=== PATIENT | male | born 1990 | race Caucasian/White ===

== ENCOUNTER 2017-12-06 05:01 | Emergency (ER) | payer OTHER ==
[2017-12-06] MEDS ORDERED: NS(*) 0.9% 1000 ML BAG 1,000 ML IV ONE (05:13)
[2017-12-06] MEDS ORDERED: PANTOPRAZOLE SOD 40 MG IV VIAL IVP ONE (05:15)
[2017-12-06] MEDS ORDERED: ONDANSETRON 4 MG/2 ML VIAL IVP ONE (05:15)
--- NOTE | 2017-12-06 05:26 | ER Report ---
History and Physical Time Seen By MD: 05:11 Hx. of Stated Complaint: n/v/d for several days. thought it was food poisoning but it's not going away HPI/ROS CHIEF COMPLAINT: nausea, vomiting, diarrhea HISTORY OF PRESENT ILLNESS: This is a 27 year old male. He is a boom truck driver. He has been having nausea and vomiting and diarrhea for several days now. He had symptoms that he thought were getting better, but now worsened again. Having more vomiting now, yesterday was more diarrhea. No abdominal pain with this. No blood in the bowels. Had thought that he had food poisoning, but not improving and lasting longer. Has not been able to eat or drink much and is starting to feel a little dizzy. REVIEW OF SYSTEMS: Constitutional: No fever or chills. Cardiovascular: No chest pain. Respiratory: No shortness of breath. Gastrointestinal: As above. Genitourinary: No dysuria. No frequency Musculoskeletal: No musculoskeletal pain. Skin: No rashes. Neurological: As above Allergies: Coded Allergies: No Known Drug Allergies (Unverified , 12/06/17) Home Meds Active Scripts Ondansetron (ZOFRAN ODT) 4 Mg Tab.rapdis, 4 MG PO Q6H Y for NAUSEA/VOMITING, # 20 TAB.OCHOA 0 Refills Prov:KARYN CARDENAS MD 12/06/17 Ciprofloxacin Hcl (CIPROFLOXACIN HCL) 500 Mg Tablet, 500 MG PO Q12H, #14 TAB 0 Refills Prov:KARYN CARDENAS MD 12/06/17 Reviewed Nurses Notes: Yes Hx Substance Use Disorder: No Hx Alcohol Use: No Constitutional Vital Sign - Last 24 Hours 12/06/17 12/06/17 12/06/17 12/06/17 05:01 05:05 05:08 05:16 Temp 98.2 Pulse ??? 91 92 Resp 14 B/P (MAP) 124/75 124/75 (91) Pulse Ox 93 99 O2 Delivery Room Air 12/06/17 12/06/17 12/06/17 12/06/17 05:30 05:31 05:46 06:00 Pulse 86 86 B/P (MAP) 113/62 (79) ???/??? (6620) Pulse Ox 96 86 12/06/17 12/06/17 12/06/17 12/06/17 06:01 06:16 06:30 06:31 Pulse ??? 85 ??? B/P (MAP) 122/67 (85) Pulse Ox 88 91 12/06/17 12/06/17 06:46 06:54 Pulse 90 B/P (MAP) 123/64 (83) Pulse Ox 93 Physical Exam General Appearance: The patient is alert. Acute distress due to nausea/ vomiting. Eyes: Pupils are equal, round. No pallor, injection or icterus. ENT: Mucous membranes are somewhat dry. Otherwise normal oral mucosa. Neck: Supple and non tender. No lymphadenopathy. Respiratory: Lungs are clear to auscultation. Cardiovascular: Regular rate and rhythm. No murmurs, gallops or rubs. Normal capillary refill. Gastrointestinal: Abdomen is soft and non tender. Nondistended. Hyperactive bowel sounds. No costovertebral angle tenderness with percussion. Neurological: Alert and oriented x3. Skin: Warm and dry. Pallor. DIFFERENTIAL DIAGNOSIS: After history and physical exam, differential diagnosis was considered for ongoing nausea with vomiting, possibly due to viral gastroenteritis, viral syndrome, food poisoning, other infectious process such as colitis. Medical Decision Making Data Points Result Diagram: 12/06/17 0520 12/06/17 0520 Laboratory Hematology Test 12/06/17 05:09 12/06/17 05:20 Urine Color Yellow Urine Clarity Slightly-cloudy Urine pH 5.0 pH (4.8-9.5) Urine Specific [place] 1.029 Urine Protein 30 mg/dL (NEGATIVE) Urine Glucose (UA) Negative mg/dL (NEGATIVE) Urine Ketones 20 mg/dL (NEGATIVE) Urine Blood Negative (NEGATIVE) Urine Nitrite Negative (NEGATIVE) Urine Bilirubin Negative (NEGATIVE) Urine Urobilinogen 2.0 mg/dL (0.2-1.9) Urine Leukocyte Esterase Negative (NEGATIVE) Urine RBC 8 /HPF (0-2/HPF) Urine WBC 4 /HPF (0-5/HPF) Urine Squamous Epithelial Cells None /LPF (</=FEW) Urine Bacteria Moderate /HPF (NONE-FEW) Urine Mucus Few /HPF (NONE-FEW) Red Blood Count 5.66 M/uL (4.00-5.60) Mean Corpuscular Volume 84.9 fL (80.0-96.0) Mean Corpuscular Hemoglobin 29.7 pg (26.0-33.0) Mean Corpuscular Hemoglobin Concent 35.0 g/dL (32.0-36.0) Red Cell Distribution Width 13.8 % (11.5-14.5) Mean Platelet Volume 8.6 fL (7.2-11.1) Neutrophils (%) (Auto) 83.1 % (39.4-72.5) Lymphocytes (%) (Auto) 6.3 % (17.6-49.6) Monocytes (%) (Auto) 9.5 % (4.1-12.4) Eosinophils (%) (Auto) 0.1 % (0.4-6.7) Basophils (%) (Auto) 1.0 % (0.3-1.4) Nucleated RBC Relative Count (auto) 0.0 /100WBC Neutrophils # (Auto) 5.8 K/uL (2.0-7.4) Lymphocytes # (Auto) 0.4 K/uL (1.3-3.6) Monocytes # (Auto) 0.7 K/uL (0.3-1.0) Eosinophils # (Auto) 0.0 K/uL (0.0-0.5) Basophils # (Auto) 0.1 K/uL (0.0-0.1) Nucleated RBC Absolute Count (auto) 0.00 K/uL Sodium Level 135 mmol/L (137-145) Potassium Level 3.3 mmol/L (3.5-5.0) Chloride Level 96 mmol/L (98-107) Carbon Dioxide Level 23 mmol/L (22-30) Blood Urea Nitrogen 18 mg/dl (9-21) Creatinine 1.50 mg/dl (0.66-1.25) Glomerular Filtration Rate Calc 55.7 Random Glucose 111 mg/dl (75-110) Calcium Level 9.1 mg/dl (8.4-10.2) Total Bilirubin 0.9 mg/dl (0.2-1.3) Aspartate Amino Transf (AST/SGOT) 54 U/L (0-35) Alanine Aminotransferase (ALT/SGPT) 71 U/L (0-56) Alkaline Phosphatase 94 U/L (0-126) C-Reactive Protein 4.3 mg/dl (<1.0) Total Protein 7.8 g/dl (6.3-8.2) Albumin 4.5 g/dl (3.5-5.0) Amylase Level 75 U/L (0-110) Lipase 73 U/L (23-300) Chemistry Test 12/06/17 05:09 12/06/17 05:20 Urine Color Yellow Urine Clarity Slightly-cloudy Urine pH 5.0 pH (4.8-9.5) Urine Specific [place] 1.029 Urine Protein 30 mg/dL (NEGATIVE) Urine Glucose (UA) Negative mg/dL (NEGATIVE) Urine Ketones 20 mg/dL (NEGATIVE) Urine Blood Negative (NEGATIVE) Urine Nitrite Negative (NEGATIVE) Urine Bilirubin Negative (NEGATIVE) Urine Urobilinogen 2.0 mg/dL (0.2-1.9) Urine Leukocyte Esterase Negative (NEGATIVE) Urine RBC 8 /HPF (0-2/HPF) Urine WBC 4 /HPF (0-5/HPF) Urine Squamous Epithelial Cells None /LPF (</=FEW) Urine Bacteria Moderate /HPF (NONE-FEW) Urine Mucus Few /HPF (NONE-FEW) White Blood Count 6.9 k/uL (4.5-11.0) Red Blood Count 5.66 M/uL (4.00-5.60) Hemoglobin 16.8 g/dL (14.0-18.0) Hematocrit 48.1 % (42.0-52.0) Mean Corpuscular Volume 84.9 fL (80.0-96.0) Mean Corpuscular Hemoglobin 29.7 pg (26.0-33.0) Mean Corpuscular Hemoglobin Concent 35.0 g/dL (32.0-36.0) Red Cell Distribution Width 13.8 % (11.5-14.5) Platelet Count 172 K/uL (150-450) Mean Platelet Volume 8.6 fL (7.2-11.1) Neutrophils (%) (Auto) 83.1 % (39.4-72.5) Lymphocytes (%) (Auto) 6.3 % (17.6-49.6) Monocytes (%) (Auto) 9.5 % (4.1-12.4) Eosinophils (%) (Auto) 0.1 % (0.4-6.7) Basophils (%) (Auto) 1.0 % (0.3-1.4) Nucleated RBC Relative Count (auto) 0.0 /100WBC Neutrophils # (Auto) 5.8 K/uL (2.0-7.4) Lymphocytes # (Auto) 0.4 K/uL (1.3-3.6) Monocytes # (Auto) 0.7 K/uL (0.3-1.0) Eosinophils # (Auto) 0.0 K/uL (0.0-0.5) Basophils # (Auto) 0.1 K/uL (0.0-0.1) Nucleated RBC Absolute Count (auto) 0.00 K/uL Glomerular Filtration Rate Calc 55.7 Calcium Level 9.1 mg/dl (8.4-10.2) Total Bilirubin 0.9 mg/dl (0.2-1.3) Aspartate Amino Transf (AST/SGOT) 54 U/L (0-35) Alanine Aminotransferase (ALT/SGPT) 71 U/L (0-56) Alkaline Phosphatase 94 U/L (0-126) C-Reactive Protein 4.3 mg/dl (<1.0) Total Protein 7.8 g/dl (6.3-8.2) Albumin 4.5 g/dl (3.5-5.0) Amylase Level 75 U/L (0-110) Lipase 73 U/L (23-300) Urinalysis Test 12/06/17 05:09 Urine Color Yellow Urine Clarity Slightly-cloudy Urine pH 5.0 pH (4.8-9.5) Urine Specific [place] 1.029 Urine Protein 30 mg/dL (NEGATIVE) Urine Glucose (UA) Negative mg/dL (NEGATIVE) Urine Ketones 20 mg/dL (NEGATIVE) Urine Blood Negative (NEGATIVE) Urine Nitrite Negative (NEGATIVE) Urine Bilirubin Negative (NEGATIVE) Urine Urobilinogen 2.0 mg/dL (0.2-1.9) Urine Leukocyte Esterase Negative (NEGATIVE) Urine RBC 8 /HPF (0-2/HPF) Urine WBC 4 /HPF (0-5/HPF) Urine Squamous Epithelial Cells None /LPF (</=FEW) Urine Bacteria Moderate /HPF (NONE-FEW) Urine Mucus Few /HPF (NONE-FEW) EKG/Imaging Imaging ACUTE ABDOMEN SERIES 3 VIEW INDICATION: Nausea, vomiting, pain COMPARISON: None available FINDINGS: Upright chest, upright abdomen and supine abdomen radiographs obtained. The cardiac silhouette is normal in size. No pneumothorax. Clear lungs. Normal thoracic osseous structures. No free air. No organomegaly, abnormal calcification or dilated bowel loops. Slight convexity right lumbar scoliosis noted. IMPRESSION: No acute finding. Report Dictated By: Vitor Craig MD at 12/06/2017 6:23 AM ED Course/Re-evaluation Clinical Indication for ER IV: Hydration, IV Access ED Course The patient felt much better after a liter of fluid and Zofran. No abdominal pain. No further diarrhea. Mild changes in labs, likely acute phase stress response from the vomiting. Abdominal x-ray was negative as well. Discussed all this with the patient Offered further treatment including CT scan of the abdomen and pelvis, but after discussion, we will treat empirically with Cipro 500mg bid x 7 days, as well as Zofran 4mg as needed for nausea. The urine showed bacteria and some white and red cells, but urinary tract infection is still less likely. We will run a urine culture. Decision to Disposition Date: Dec 06, 2017 Decision to Disposition Time: 06:51 Depart Departure Latest Vital Signs Vital Signs Date Time Temp Pulse Resp B/P (MAP) Pulse Ox O2 Delivery O2 Flow Rate FiO2 12/06/17 06:54 123/64 (83) 12/06/17 06:46 90 93 12/06/17 05:05 98.2 14 Room Air Impression: Primary Impression: Viral gastroenteritis Condition: Improved Disposition: HOME OR SELF-CARE New Scripts Ondansetron (ZOFRAN ODT) 4 Mg Tab.rapdis 4 MG PO Q6H Y for NAUSEA/VOMITING, #20 TAB.OCHOA 0 Refills Prov: KARYN CARDENAS MD 12/06/17 Ciprofloxacin Hcl (CIPROFLOXACIN HCL) 500 Mg Tablet 500 MG PO Q12H, #14 TAB 0 Refills Prov: KARYN CARDENAS MD 12/06/17 Patient Instructions: Food Poisoning (ED), Gastroenteritis (ED) Additional Instructions: We do not know for sure what has caused your symptoms. Most likely this would be a viral infection called gastroenteritis, or food poisoning. Take Zofran 4mg, one every 6 hours as needed for nausea and vomiting. Start the antibiotic Ciprofloxacin 500mg twice a day for 7 days. Increase fluid intake. Stick with clear fluids and then slowly advance your diet as you are feeling better. If you are not improving, or if worsening, then you would need to return here or another provider for re-evaluation. Consideration for further management would be CT scan of the abdomen and pelvis , or seeing a GI specialist for further evaluation including possible endoscopies. If symptoms continue, stool studies will be important as we were unable to collect them today. Your urine had a few white blood cells and red blood cells as well. We are going to be running a urine culture. KARYN CARDENAS MD Dec 06, 2017 05:26
[2017-12-06 05:30] LABS: PLATELET COUNT, AUTOMATED 172 K/uL (150-450)
--- NOTE | 2017-12-06 06:29 | RADIOLOGY IMAGING REPORT ---
FACILITY: [facility] [place] PATIENT NAME: Loy Richmond : 1990 MR: [id number] V: [id number] EXAM DATE: ORDERING PHYSICIAN: KARYN CARDENAS TECHNOLOGIST: Location: [facility] [place] Patient: Loy Richmond : 1990 Visit/Account:[id number] Date of Sevice: 12/06/2017 ACUTE ABDOMEN SERIES 3 VIEW INDICATION: Nausea, vomiting, pain COMPARISON: None available FINDINGS: Upright chest, upright abdomen and supine abdomen radiographs obtained. The cardiac silho uette is normal in size. No pneumothorax. Clear lungs. Normal thoracic osseous structures. No free air. No organomegaly, abnormal calcification or dilated bowel loops. Slight convexity right l umbar scoliosis noted. IMPRESSION: No acute finding. Report Dictated By: Vitor Craig MD at 12/06/2017 6:23 AM Report E-Signed By: Vitor Craig MD at 12/06/2017 6:25 AM WSN:[id number]
[2017-12-06 06:54] VITALS: BP 123/64
[2017-12-06] MEDS ORDERED: CIPR-214 PO (06:56)
[2017-12-06] MEDS ORDERED: ONDA4TAB PO (06:56)
[2017-12-06] MEDS ORDERED: ONDANSETRON 4 MG ODT TH SL ONE (07:00)
[2017-12-06] MEDS ORDERED: CIPROFLOXACIN 500 MG TAB PO ONE (07:00)
== END 2017-12-06 07:05 | disposition home or self-care (01) ==
LOC: ER 05:17
DX: A08.4 Viral intestinal infection, unspecified (principal)
CPT/HCPCS: 74022; 81001; 82150; 83690; 85025; 86140; 87088; 96374; 96375; 99283; C9113; J2405; J7030; S0119; 82040; 82247; 82310; 82374; 82435; 82565; 82947; 84075; 84132; 84155; 84295; 84450; 84460; 84520